=== PATIENT | female | born 1985 | race Caucasian/White ===

== ENCOUNTER → 2017-12-23 16:05 | Outpatient (CLI) | payer OTHER, SELFPAY ==
--- NOTE | 2017-12-23 16:12 | DI.MRI.S_ITS ---
PROCEDURE: MR LUMBAR SPINE WO CON INDICATIONS: LOW BACK PAIN TECHNIQUE: Noncontrast sagittal T1 spin echo and T2 fast echo, sagittal STIR, axial T1 and T2 fast spin echo through the lumbar spine. In cases with scoliosis, additional coronal T2 fast spin echo may be performed. COMPARISON: None. FINDINGS: Image quality: Excellent. Alignment and Curvature: Diagnostic, with note made of motion artifact. Images are repeated, with some improvement. Bone Marrow: Marrow is of normal overall signal. No acute vertebral body compression fractures. Spinal Cord: Conus medullaris terminates at the L1 level. Visualized cord demonstrates normal signal and size. Paraspinous Soft Tissues: No paravertebral masses. T12-L1: Normal appearance. L1-L2: Normal appearance. L2-L3: Normal appearance. L3-L4: Normal appearance. L4-L5: The disc height and disk signal are well-preserved. Mild disc bulge is seen, which is eccentric to the right. There is mild right-sided and no significant foraminal narrowing seen. The central canal is widely patent. L5-S1: Mild loss of disc height is seen. Loss of disc signal is seen. Moderate disc bulge is seen, with a central disc extrusion, with inferior migration of disc material. Mild facet joint hypertrophy is seen. There is moderate to severe bilateral neural foraminal narrowing seen. There is a degree of impingement seen upon the exiting nerve roots. Mild to moderate central canal narrowing is seen. IMPRESSION: Focal L5-S1 degenerative change, with a central disc extrusion. Moderate to severe bilateral neural foraminal narrowing is also seen at L5 is, with associated nerve root impingement. Dictated by: Francisco Javier Sheridan M.D. on 12/23/2017 at 16:31 Approved by: Francisco Javier Sheridan M.D. on 12/23/2017 at 16:34
== END ==
PROVIDERS: Family Provider Family Medicine; PCP Family Medicine; Visit Provider Radiology Diagnostic Radiology
DX: M54.5 Low back pain (principal); M51.37 Other intervertebral disc degeneration, lumbosacral region; M48.07 Spinal stenosis, lumbosacral region
CPT/HCPCS: 72148

== ENCOUNTER 2018-07-31 10:24 | Emergency (ER) | payer OTHER, SELFPAY ==
[2018-07-31 10:25] VITALS: BP 160/98; PULSE 104; RESP 18; TEMP 36.8; O2SAT 100; BMI 23.8
--- NOTE | 2018-07-31 11:40 | ED_ITS ---
HPI - Back Pain/Injury General Chief Complaint: Back Pain/Injury Stated Complaint: Lower back pain travels down left leg Time Seen by Provider: 07/31/18 11:39 Source: patient Mode of arrival: ambulatory Limitations: no limitations History of Present Illness HPI Narrative: 33-year-old female comes to the emergency department with complaint of back/left leg pain. Patient had microdiskectomy on her L5-S1 region on July 02. She states that has been improving, her incision has been healing well. She started noticing she is having more pain in her left buttock/hip area and it radiates down towards her ward. Patient states she had had some symptoms before her surgery but it has been much worse recently. She had a wound check with her primary care but has not been back to see her surgeon because they [facility] [place]. She states no weakness, but sometimes the pain is very intense and she feels like she is going to fall down from it. She denies any fevers, no chills, no nausea, no vomiting. She has had normal bowel movements with no issues with urinary incontinence or retention nor with fecal incontinence or retention. No saddle anesthesia. She states sometimes she has some tingling sensation down her leg on the left. She is not having issues on the right. She states that they started her on dexamethasone which was helpful but as it is being tapered down her pain is increasing. She has been taking ibuprofen 600 mg 3 times daily. She was on hydrocodone immediately after surgery but did not enjoy the way it made her feel. She has had surgery for ovarian cysts and her appendix out but denies any other medical history. She does find stretching and icing the hip area does sometimes help. But when she tries to move back to her original position it can be very uncomfortable. She finds it is most uncomfortable when she tries to sit for long periods of time or straight up after sitting. Related Data Home Medications Medication Instructions Recorded Confirmed levonorgestrel-ethinyl estrad 1 tab PO DAILY 07/31/18 07/31/18 [Orsythia] methylprednisolone 1 dose PO DIRECTED 07/31/18 07/31/18 Previous Rx's Medication Instructions Recorded dexamethasone See Rx Instructions .ROUTE 07/31/18 .COMPLEX #56 tab meloxicam [Mobic] 7.5 mg PO DAILY PRN #20 tab 07/31/18 Allergies Allergy/AdvReac Type Severity Reaction Status Date / Time No Known Drug Allergies Allergy Verified 07/31/18 10:52 Review of Systems Review of Systems ROS Unobtainable: All systems reviewed & are unremarkable except as noted in HPI and below Constitutional Denies chills, Denies fever(s), Denies lethargy and Denies weakness Gastrointestinal Gastrointestinal: Denies abdominal pain, Denies change in bowel habits, Denies fecal incontinence, Denies diarrhea, Denies nausea and Denies vomiting Genitourinary Denies hematuria, Denies urinary frequency, Denies difficulty voiding, Denies dysuria, Denies urinary incontinence, Denies urinary hesitancy and Denies urinary urgency Musculoskeletal Reports as per HPI, Denies abnormal gait, Denies back pain, Reports limited range of motion, Denies muscle weakness, Denies numbness, Reports radiating pain into limb (Left leg) and Reports tingling (Left wound) Integumentary/Breasts Denies rash and Reports other (A healing incision on back) Neurologic Reports as per HPI, Denies abnormal gait, Denies burning sensations, Denies numbness, Reports radicular pain (Left leg), Denies sensory deficit, Reports tingling (Left wound) and Denies weakness [facility] Surgical History (Updated 07/31/18 @ 12:26 by Cintia Lopez DO) History of microdiscectomy (Acute) H/O ovarian cystectomy (Chronic) Social History Smoking Status: Former smoker Social History Smoking Status: Former smoker Exam Narrative Exam Narrative: GENERAL: Alert and oriented x three, well-nourished, well- appearing female in moderate distress. HEENT: Head normocephalic, atraumatic, EOMI, pupils reactive, face symmetric, moist mucous membranes NECK: Supple, full range of motion CARDIOVASCULAR: Regular rate and rhythm without murmurs, rubs or gallops. RESPIRATORY: Breath sounds equal bilaterally, no wheezes rales or rhonchi. ABDOMEN: Soft, nontender. Normoactive bowel sounds all 4 quadrants. No guarding or rebound, rigidity, no mass : No CVA tenderness BACK: No cervical, thoracic or lumbar vertebral point tenderness. patient has a healing midline incision with no signs of infection, drainage. Patient has normal range of motion. Patient's gait is normal. Rectal exam is normal sphincter. Muscle strength is 5/5 in lower extremities, DTRs are 2/4 in lower extremities. Dorsalis pedis and tibialis pulses are 2+ and lower extremities. Sensation is intact in the lower extremities bilaterally. EXTREMITIES: Normal range of motion, no clubbing or edema. Neurovascularly intact NEUROLOGICAL: Cranial nerves II through XII grossly intact. Moving all extremities SKIN: Warm, dry, no petechiae, no rashes or lesions. Initial Vital Signs Initial Vital Signs: Vital Signs Temperature 98.2 F 07/31/18 10:25 Pulse Rate 104 H 07/31/18 10:25 Respiratory Rate 18 07/31/18 10:25 Blood Pressure 160/98 H 07/31/18 10:25 Pulse Oximetry 100 07/31/18 10:25 Course Orders Ordered: Discontinued Medications Ketorolac Tromethamine (Toradol) 60 mg IM NOW ONE Stop: 07/31/18 12:16 Last Admin: 07/31/18 12:24 Dose: 60 mg Vital Signs - 8 hr 07/31/18 12:57 Pulse Rate 89 Respiratory Rate 16 Blood Pressure [Right Arm] 124/83 Pulse Oximetry 100 MDM - Back Pain/Injury MDM Narrative Medical decision making narrative: The patient does not have any red flag sympto ms that suggest she needs urgent/emergent MRI. She does seem to respond well to the dexamethasone and discussed increasing it back up and doing a slower taper. I did recommend that she have a [id number] with her back surgeon and then if she is cleared from this perspective can have further evaluation of possible sciatica. We did discussed red flag symptoms reasons to return emergently. Patient did not like how narcotics make her feel so discussed changing her ibuprofen to Mobic. She states that Flexeril has not been helpful as a muscle relaxant. Really the steroids seem to be the most helpful medication. Discharge Plan Departure Patient Disposition: Home Clinical Impression: Lumbar radiculopathy Discharge Date/Time: 07/31/18 13:05 Interventions: ED Discharge Assessment Last Done: 07/31/18 13:05 Instructions: DI for Lumbar Radiculopathy Activity Restrictions/Additional Instructions: Follow-up with your surgeon this coming week, call today for an appointment. Take medications as prescribed. Stop the dexamethasone here currently taking and start the new taper today. You may take meloxicam with this medication, you may take twice daily needed for pain. Do not take ibuprofen with this medication. You may take Tylenol up to a 1000 mg every 8 hours as needed. Return to the ER for fevers greater than 100.4 F, rapidly increasing pain, new weakness, numbness, loss of sensation, loss of bowel or bladder control or other new or concerning symptoms. Prescriptions: New dexamethasone 4 mg tablet See Rx Instructions .ROUTE .COMPLEX Qty: 56 RF: 0 meloxicam [Mobic] 7.5 mg tablet 7.5 mg PO DAILY PRN (Reason: pain) Qty: 20 RF: 0 No Action levonorgestrel-ethinyl estrad [Orsythia] 0.1-20 mg-mcg tablet 1 tab PO DAILY RF: 0 methylprednisolone 4 mg tablets,dose pack 1 dose PO DIRECTED RF: 0 Referrals: Fabián Topete MD [Primary Care Provider] - Stand Alone Forms: Work Release Note
[2018-07-31] MEDS: KETOROLAC 60 MG/2 ML VIAL IM (12:24)
[2018-07-31 12:57] VITALS: BP 124/83; PULSE 89; RESP 16; O2SAT 100
--- NOTE | 2018-07-31 13:18 | PC.NURSE ---
patient recovering from back surgery. Completing a prednisone taper, concerns pain is increasing as the taper decreases. Pain radiated deep into left buttocks.
== END 2018-07-31 13:05 | disposition home or self-care (01) ==
PROVIDERS: Emergency Provider Emergency Medicine; Family Provider Family Medicine; PCP Family Medicine
DX: M54.16 Radiculopathy, lumbar region (principal); M79.605 Pain in left leg
CPT/HCPCS: 96372; 99282; 99283; J1885

== ENCOUNTER 2018-08-15 19:32 | Emergency (ER) | payer OTHER, SELFPAY ==
[2018-08-15 19:35] VITALS: BP 146/84; PULSE 100; RESP 14; TEMP 36.7; O2SAT 100; BMI 23.0
--- NOTE | 2018-08-15 19:36 | ED_ITS ---
HPI - General Adult General Chief complaint: Urogenital-Female Stated complaint: loss of ability to control bladder Time Seen by Provider: 08/15/18 19:35 Source: patient Mode of arrival: ambulatory Limitations: no limitations History of Present Illness HPI narrative: Patient is a 33-year-old female with known lower back issues. She underwent a micro diskectomy approximately 1 month ago down at [facility]. Since that she has had a follow-up with her neurosurgeon. She currently has a referral in to see pain management but has not seen them yet. She is currently taking gabapentin. She increased it from 100 mg 3 times a day to 300 mg 3 times a day just yesterday. She stop the dexamethasone a couple days ago when she was down to 1 pill a day because she states that it was causing her quite a bit of psychologic issues. She states that she has been trouble sleeping at night. She states that she did take some muscle relaxer last evening and a couple hours later she stated that she felt like she needed to urinate. States she got up and right before she sat down she had a slight amount of incontinence. She was able to urinate normally after that. Did have regular urinations then throughout the day. She states that during the evening she felt like she needed to go the bathroom again. She states that she did take quite a bit of time to get up from lying down and again had a small amount of in continence. She came into the emergency department because she was having those symptoms and slightly different lower back pain. No bowel symptoms. No fevers. Related Data Home Medications Medication Instructions Recorded Confirmed levonorgestrel-ethinyl estrad 1 tab PO DAILY 07/31/18 07/31/18 [Orsythia] methylprednisolone 1 dose PO DIRECTED 07/31/18 07/31/18 Previous Rx's Medication Instructions Recorded dexamethasone See Rx Instructions .ROUTE 07/31/18 .COMPLEX #56 tab meloxicam [Mobic] 7.5 mg PO DAILY PRN #20 tab 07/31/18 Allergies Allergy/AdvReac Type Severity Reaction Status Date / Time No Known Drug Allergies Allergy Verified 07/31/18 10:52 Review of Systems Constitutional Denies fever(s) and Denies headache(s) ENT Ears, Nose, Mouth, and Throat: Denies headache(s) Cardiovascular Denies chest pain and Denies dyspnea Respiratory Denies dyspnea Gastrointestinal Gastrointestinal: Denies abdominal pain, Denies nausea and Denies vomiting Genitourinary Denies dysuria, Reports urinary incontinence, Denies urinary hesitancy, Denies urinary urgency and Denies vaginal discharge Musculoskeletal Reports back pain, Denies myalgias, Denies arthralgias and Denies tingling Integumentary/Breasts Denies rash Neurologic Denies headache(s), Reports radicular pain and Denies tingling Hematologic/Lymphatic Denies easy bleeding and Denies easy bruising Allergic/Immunologic Denies urticaria [facility] Medical History Lower back pain (Acute) Surgical History (Updated 07/31/18 @ 12:26 by Cintia Lopez DO) History of microdiscectomy (Acute) H/O ovarian cystectomy (Chronic) Social History Smoking Status: Former smoker Social History Smoking Status: Former smoker Exam Initial Vital Signs Initial Vital Signs: Vital Signs Temperature 98.1 F 08/15/18 19:35 Pulse Rate 100 H 08/15/18 19:35 Respiratory Rate 14 08/15/18 19:35 Blood Pressure 146/84 H 08/15/18 19:35 Pulse Oximetry 100 08/15/18 19:35 Const General: cooperative, well developed, well groomed and No acute distress Orientation: alert, awake and oriented x3 HENMT Head: normal to inspection and normocephalic Resp Effort & Inspection: normal respiratory effort Cardio Rate: regular rate GI Rectal Exam: normal sphincter tone Back/Spine/Pelvis Back: normal to inspection Skin Other: Well-healed lower back surgical scar Neuro General: alert and awake Cognition: normal cognition Speech: speech normal Gait: normal gait Motor: muscle tone normal throughout Extrem General: normal to inspection and capillary refill normal Psych Appearance: grossly normal and well kempt Mood: congruent mood Affect: normal affect Course Orders Ordered: ED Orders 08/15/18 19:55 Urine Microscopic Stat Vital Signs - 8 hr 08/15/18 19:35 Temperature 98.1 F Pulse Rate 100 H Respiratory Rate 14 Blood Pressure 146/84 H Pulse Oximetry 100 Medical Decision Making Lab Data Lab results reviewed: Yes I reviewed the patient's lab results. Lab Results 08/15/18 Range/Units 19:55 Urine RBC 5-10/hpf H (0-5/HPF) Urine WBC 0-1/hpf (0-5/HPF) Urine Bacteria None seen (None) Ur Culture Indicated? Cult not indicated Point of Care Testing Test Results Negative Urine Dip Bedside Urine Glucose Negative Bedside Urine Bilirubin - Negative Bedside Urine Ketone - Negative Urine Specific [place] 1.020 Bedside Urine Occult Blood + Bedside Urine pH 6.0 Bedside Urine Protein - Negative Bedside Urine Urobilinogen - Negative Bedside Urine Nitrite - Negative Bedside Urine Leukocytes - Negative Esterase Point of care testing: Point of Care Testing Test Results Negative Urine Dip Bedside Urine Glucose Negative Bedside Urine Bilirubin - Negative Bedside Urine Ketone - Negative Urine Specific [place] 1.020 Bedside Urine Occult Blood + Bedside Urine pH 6.0 Bedside Urine Protein - Negative Bedside Urine Urobilinogen - Negative Bedside Urine Nitrite - Negative Bedside Urine Leukocytes - Negative Esterase MDM Narrative Medical decision making narrative: Patient's urine is unremarkable, test was negative. Patient had a postvoid residual of 4 cc. She had normal rectal tone. Secondary to her history it does appear that the urinary incontinence happened because she could not make to the bathroom in time and also during a time when she had an increase in pain and also time after she took a muscle relaxer. All of these could explain the symptoms. She is not having any fevers. I have low suspicion for cauda equina given this history and physical. She had normal rectal tone. I feel like we can hold on a MRI for now. Considered epidural abscess/hematoma however she is 6 weeks out from her surgery and symptoms are just now starting. I feel that this is unlikely. She also just recently stopped her steroids and also just recently increased her gabapentin which could account for the change in her symptoms. I discussed all this with the patient. We discussed return precautions and follow-up instructions. She expressed understanding and agreement plan. Discharge Plan Departure Patient Disposition: Home Clinical Impression: Back pain Qualifiers: Back pain location: low back pain Chronicity: chronic Back pain laterality: midline Sciatica presence: with sciatica Sciatica laterality: sciatica laterality unspecified Qualified Code(s): M54.40 - Lumbago with sciatica, unspecified side Discharge Date/Time: 08/15/18 20:55 Instructions: DI for Back Pain With Sciatica, Activity May Be Better then Rest for Low Back Pain Recovery Activity Restrictions/Additional Instructions: I have low suspicion for cauda equina today secondary to your urinary symptoms. I recommend that you continue all of your medication as directed and like we discussed. Be sure to call on Friday to talk by your referral to see pain management. Please return to the emergency department for any new or worsening symptoms Prescriptions: No Action levonorgestrel-ethinyl estrad [Orsythia] 0.1-20 mg-mcg tablet 1 tab PO DAILY RF: 0 methylprednisolone 4 mg tablets,dose pack 1 dose PO DIRECTED RF: 0 dexamethasone 4 mg tablet See Rx Instructions .ROUTE .COMPLEX Qty: 56 RF: 0 meloxicam [Mobic] 7.5 mg tablet 7.5 mg PO DAILY PRN (Reason: pain) Qty: 20 RF: 0 Referrals: Fabián Topete MD [Primary Care Provider] -
--- NOTE | 2018-08-15 20:10 | PC.NURSE ---
pt reports laminectomy in june, new symptoms started today. pt reports right and left sided sciatica and urinairy urgency with incontenence every time she gets up from laying down or sitting. Pt reports a shooting pain in her back and down legs from coughing and exertion. Pt denies fever, chills, sweats, n/v/d.
[2018-08-15 20:25] LABS: Bacteria Urine None Seen
[2018-08-15 20:46] LABS: Culture Indicated Urine Cult Not Indicated; RBC Urine 5-10/HPF (0-5/HPF); WBC Urine 0-1/HPF (0-5/HPF)
[2018-08-15 20:54] VITALS: BP 138/81; PULSE 72; RESP 16; O2SAT 100
== END 2018-08-15 20:55 | disposition home or self-care (01) ==
PROVIDERS: Emergency Provider Emergency Medicine; PCP Family Medicine
DX: M54.40 Lumbago with sciatica, unspecified side (principal)
CPT/HCPCS: 51798; 81003; 81015; 81025; 99282; 99283

== ENCOUNTER 2019-04-24 18:58 | Emergency (ER) | payer OTHER, SELFPAY ==
[2019-04-24 19:10] VITALS: BP 161/96; PULSE 90; RESP 18; TEMP 37; O2SAT 100; BMI 23.8
--- NOTE | 2019-04-24 19:56 | ED.EAR ---
HPI - Ear Problem <WAQAS Liu - Last Filed: 04/24/19 20:03> General Chief complaint: Ear Stated complaint: vibration in her left ear Time Seen by Provider: 04/24/19 19:16 Source: patient Mode of arrival: Ambulatory Limitations: no limitations History of Present Illness HPI Narrative: The patient is a 33-year-old female with remote history of ear infection who presents with a chief complaint of a vibration in her left ear. It started earlier today, is episodic. She has not had the by burning sensation in her left ear for over an hour. She denies any fevers nausea vomiting diarrhea cough or congestion. She denies any ear pain. She is insistent that the vibrating sensation in her ear does not feel like a foreign body. She has not taken anything to feel better. Related Data Home Medications Medication Instructions Recorded Confirmed levonorgestrel-ethinyl estrad 1 tab PO DAILY 07/31/18 07/31/18 [Orsythia] methylprednisolone 1 dose PO DIRECTED 07/31/18 07/31/18 Previous Rx's Medication Instructions Recorded dexamethasone See Rx Instructions .ROUTE 07/31/18 .COMPLEX #56 tab meloxicam [Mobic] 7.5 mg PO DAILY PRN #20 tab 07/31/18 Allergies Allergy/AdvReac Type Severity Reaction Status Date / Time No Known Drug Allergies Allergy Verified 04/24/19 19:09 Review of Systems <WAQAS Liu - Last Filed: 04/24/19 20:03> Review of Systems Narrative: GENERAL: Denies chills, fatigue, malaise, fever, sweats. HEENT: See HPI RESPIRATORY: Denies dyspnea, cough, wheezing, hemoptysis, sputum. CARDIOVASCULAR: Denies chest pain, palpitations, orthopnea, edema, GASTROINTESTINAL: Denies nausea, vomiting, abdominal pain, diarrhea, constipation, melena. : Denies dysuria, frequency, incontinence, hematuria, urinary retention. MUSCULOSKELETAL: denies weakness, joint pain, or bony pain SKIN: Denies rash, skin lesions, or other NEUROLOGIC: Denies weakness, headache, numbness, change in speech, confusion, seizures, incoordination. PSYCHIATRIC: No concerning psychosocial issues. 12 point review of systems is negative except for those stated above Patient History <WAQAS Liu - Last Filed: 04/24/19 20:03> Medical History Lower back pain (Acute) Surgical History H/O ovarian cystectomy (Chronic) History of microdiscectomy (Acute) Social History Smoking Status: Former smoker Smoking Status: Former smoker alcohol intake frequency: holidays/special occasions only Substance Use Type: does not use Exam <EMILY Liu - Last Filed: 04/24/19 20:03> Narrative Exam Narrative: GENERAL: This is a well-nourished, well-developed patient, no acute distress HEAD: Atraumatic. Normocephalic. No temporal or scalp tenderness. EYES: Pupils equal round and reactive. Extraocular motions intact. No scleral icterus. No injection or drainage. ENT: Nose without bleeding, purulent drainage or septal hematoma. Throat without erythema, tonsillar hypertrophy or exudate. Uvula midline. Airway patent. Bilateral TMs pearly jordan. Bilateral ear canals within normal limits. NECK: Trachea midline. No JVD or lymphadenopathy. Supple, nontender, no meningeal signs. CARDIOVASCULAR: Regular rate and rhythm without murmurs, gallops, or rubs. RESPIRATORY: Clear to auscultation. Breath sounds equal bilaterally. No wheezes, rales, or rhonchi. No cough. No increased respiratory effort. No accessory muscle use. EXTREMITIES: No clubbing, cyanosis, or edema. No joint tenderness, effusion, or edema noted. BACK: Nontender without deformity or crepitance. No flank tenderness. NEURO: AOx3. SKIN: No rash or erythema on visible skin Initial Vital Signs Initial Vital Signs: Vital Signs Temperature 98.6 F 04/24/19 19:10 Pulse Rate 90 04/24/19 19:10 Respiratory Rate 18 04/24/19 19:10 Blood Pressure 161/96 H 04/24/19 19:10 Pulse Oximetry 100 04/24/19 19:10 <Evan Lopez DO - Last Filed: 04/24/19 20:05> Initial Vital Signs Initial Vital Signs: Vital Signs Temperature 98.6 F 04/24/19 19:10 Pulse Rate 90 04/24/19 19:10 Respiratory Rate 18 04/24/19 19:10 Blood Pressure 161/96 H 04/24/19 19:10 Pulse Oximetry 100 04/24/19 19:10 Course <Cintia DOROTYH Esteban-BC - Last Filed: 04/24/19 20:03> Vital Signs Vital signs: Vital Signs - 8 hr 04/24/19 19:10 Temperature 98.6 F Pulse Rate 90 Respiratory Rate 18 Blood Pressure 161/96 H Pulse Oximetry 100 <Evan DO Jessica - Last Filed: 04/24/19 20:05> Vital Signs Vital signs: Vital Signs - 8 hr 04/24/19 19:10 Temperature 98.6 F Pulse Rate 90 Respiratory Rate 18 Blood Pressure 161/96 H Pulse Oximetry 100 Medical Decision Making <DOROTHY Liu-BC - Last Filed: 04/24/19 20:03> MDM Narrative Medical decision making narrative: The patient is a 33-year-old female who presents with a chief complaint of vibrations in her left ear that are episodic and started earlier today. She has no visual abnormalities on exam. She has been without symptoms for over an hour at this point time. I discussed at length she could try Sudafed etcetera. Discussed at length the importance of following up with primary care provider if worsening or no improvement. Discussed come back to the emergency department for any acute concerns. Patient has no questions or concerns upon discharge and states understanding of return precautions as well as follow-up care. Discharge Plan Departure Patient Disposition: Home Clinical Impression: Earache Instructions: DI for Ear Pain-Adult Activity Restrictions/Additional Instructions: I do not see any cause for your symptoms on exam Please follow-up with primary care provider in the next few days. Please come back to emergency department for any acute concerns. Please monitor for fever urine problems etcetera Prescriptions: No Action levonorgestrel-ethinyl estrad [Orsythia] 0.1-20 mg-mcg tablet 1 tab PO DAILY RF: 0 methylprednisolone 4 mg tablets,dose pack 1 dose PO DIRECTED RF: 0 dexamethasone 4 mg tablet See Rx Instructions .ROUTE .COMPLEX Qty: 56 RF: 0 meloxicam [Mobic] 7.5 mg tablet 7.5 mg PO DAILY PRN (Reason: pain) Qty: 20 RF: 0 Referrals: Fabián Topete MD [Primary Care Provider] - <Evan Lopez DO - Last Filed: 04/24/19 20:05> Sign Out Provider Sign Out Attestation: Dr Lopez Co-Sign Statement: I was available for consultation during this patient's emergency department visit. This chart is signed by myself for administrative purposes only. I did not have direct contact with this patient during this visit. They were seen independently by the APC.
--- NOTE | 2019-04-24 20:05 | PC.NURSE ---
Pt states vibration in left ear which has since resolved since coming to ED, assessed by [facility] without RN.
== END 2019-04-24 20:06 | disposition home or self-care (01) ==
PROVIDERS: Emergency Provider Nurse Practitioner Family; PCP Family Medicine
DX: H92.02 Otalgia, left ear (principal)
CPT/HCPCS: 99281